=== PATIENT | male | born 1965 | race Caucasian/White ===

== ENCOUNTER 2019-06-01 10:05 | Emergency (ER) | payer OTHER ==
[2019-06-01 10:46] LABS: BASOPHILS % (AUTO) 0.4 % (0.0-5.0); HEMATOCRIT 44.5 % (42-54); LYMPHOCYTES % (AUTO) 21.7 % (21.0-51.0); MEAN CORPUSCULAR HEMOGLOBIN 29.2 pg (27.0-33.0); MEAN CORPUSCULAR HGB CONC 33.9 g/dL (32.0-36.0); MEAN CORPUSCULAR VOLUME 86.1 fL (79-99); MONOCYTES % (AUTO) 8.3 % (3.0-13.0); NEUTROPHILS % (AUTO) 68.3 % (40.0-77.0); PLATELET COUNT (AUTO) 248 K/uL (130-400); RED BLOOD CELL COUNT(AUTO) 5.17 MIL/uL (4.50-6.20); RED CELL DISTRIBUTION WIDTH 13.2 % (11.0-15.5); WHITE BLOOD COUNT (AUTO) 7.7 K/uL (4.8-10.8)
[2019-06-01] MEDS ORDERED: LORAZEPAM 2 MG/ML 1 ML VIAL ONE (10:48)
[2019-06-01 10:59] LABS: POTASSIUM 4.1 mmol/L (3.5-5.1)
[2019-06-01 11:04] LABS: ALBUMIN 4.1 g/dL (3.5-5.0); BILIRUBIN,TOTAL 0.4 mg/dL (0.2-1.0); TOTAL PROTEIN, SERUM 7.1 g/dL (6.0-8.3)
[2019-06-01] MEDS ORDERED: KETOROLAC TROMETHAMINE 30MG/ML ONE (12:17)
[2019-06-01] MEDS ORDERED: ONDANSETRON HCL 4 MG/2 ML VIAL ONE (12:17)
== END 2019-06-01 13:56 | disposition home or self-care (01) ==
LOC: EDH 10:05
DX: M25.511 Pain in right shoulder (principal); M62.838 Other muscle spasm; Z98.890 Other specified postprocedural states; Z87.891 Personal history of nicotine dependence
CPT/HCPCS: 36415; 71045; 80053; 82550; 84484; 85025; 93005; 96374; 96375; 99285; J1885; J2060; J2405